=== PATIENT | male | born 1950 | race Caucasian/White ===

== ENCOUNTER 2016-11-09 04:33 | Emergency (ER) | payer OTHER ==
[~2016-11-09] VITALS: Ht 182.8 cm; Wt 97.5 kg
[~2016-11-09 04:33] MED LIST: AMLODIPINE BESYL5 MG PO; ASPIRIN ADULT L81 M1 PO; CARAFATE1 G1 PO; CARVEDILOL12.5 MG PO; CELEBREX200 MG PO; Clopidogrel75 MG PO; LISINOPRIL AND1 TAB PO; LISINOPRIL/HCTZ1 TA1 PO; MOTRIN800 MG PO; PRAVASTATIN SOD20 MG PO; PREVACID15 MG PO; PROTONIX40 MG PO; VITAMIN D2000 IU PO; ZANTAC 150150 MG PO
[2016-11-09 04:59] LABS: BASO % 0.4 % (0.0-1.0); EOS # 0.1 10*3/uL (0.0-0.4); EOS % 1.2 % (1.0-4.0); HEMATOCRIT 44.6 % (42.0-52.0); HEMOGLOBIN 14.7 g/dl (14.0-18.0); LYMPH # 1.2 10*3/uL (1.3-4.4); LYMPH % 13.1 % (27.0-41.0); MEAN CELL VOLUME 95.1 fl (80.0-94.0); MEAN CORPUSCULAR HGB 31.3 pg (27.0-31.0); MEAN PLATELET VOLUME 9.2 fl (9.6-12.3); MONO # 0.6 10*3/uL (0.1-1.0); MONO % 6.4 % (3.0-9.0); NEUT # 7.2 10*3/uL (2.3-7.9); NEUT % 78.5 % (47.0-73.0); PLATELET COUNT AUTOMATED 284 10*3/uL (130-400); RED BLOOD COUNT 4.69 10*6/uL (4.50-5.90); RED CELL DISTRI WIDTH 12.4 % (0-14.5); WHITE BLOOD COUNT 9.2 10*3/uL (4.8-10.8)
[2016-11-09 05:12] LABS: INTERNATIONAL NORM RATIO 0.9 (2.0-3.5)
[2016-11-09 05:15] LABS: ALBUMIN 3.5 gm/dl (3.1-4.5); BILIRUBIN, TOTAL 0.3 mg/dl (0.2-1.0)
[2016-11-09 05:18] LABS: MAGNESIUM 2.1 mg/dL (1.5-2.1)
[2016-11-09 05:28] VITALS: BP 141/77
[2016-11-09] MEDS ORDERED: PROTONIX40 MG PO (06:05)
== END 2016-11-09 06:11 | disposition left against medical advice (07) ==
LOC: ED 04:33
PROVIDERS: Emergency Medicine
DX: R07.9 Chest pain, unspecified (principal); E78.5 Hyperlipidemia, unspecified; K21.9 Gastro-esophageal reflux disease without esophagitis; Z79.82 Long term (current) use of aspirin

== ENCOUNTER → 2017-02-08 | Outpatient (CLI) | payer OTHER ==
[2017-02-08 09:24] LABS: ALBUMIN 3.5 gm/dl (3.1-4.5); BILIRUBIN, DIRECT < 0.1 mg/dL (0.0-0.2); BUN 19 mg/dl (7-24); CARBON DIOXIDE 26 mmol/L (21-32); CHLORIDE 105 mmol/L (98-107); CHOLESTEROL 202 mg/dL (<200); EST GLOM FILT AFRICAN AMERICAN > 60 ml/min; GLUCOSE 108 mg/dL (65-99); PHOSPHOROUS 3.2 mg/dL (2.5-4.9); POTASSIUM 4.2 mmol/L (3.5-5.1); SGOT/AST 17 IU/L (3-35); SGPT/ALT 32 U/L (12-78); SODIUM 140 mmol/L (136-145); TRIGLYCERIDES 142 mg/dl (<150); VLDL CHOLESTEROL 28 mg/dL (6-40)
[2017-02-08 09:26] LABS: ALKALINE PHOSPHATASE 38 U/L (45-117); BILIRUBIN, TOTAL 0.5 mg/dl (0.2-1.0); HDL CHOLESTEROL 49 mg/dl (40-60); LDL CHOLESTEROL 125 mg/dL (9-159); TOTAL PROTEIN 6.7 gm/dL (6.4-8.2)
== END | disposition home or self-care (01) ==
LOC: LAB 08:17
PROVIDERS: Internal Medicine
DX: I10 Essential (primary) hypertension (principal)